=== PATIENT | female | born 1995 | race Caucasian/White ===

== ENCOUNTER 2019-03-14 23:41 | Emergency (ER) | payer SELFPAY ==
[2019-03-14] MEDS ORDERED: Ketorolac Tromethamine 60 MG/2 ML VIAL ONE (23:56)
== END 2019-03-15 00:24 | disposition home or self-care (01) ==
LOC: SCSER 23:41
DX: S29.012A Strain of muscle and tendon of back wall of thorax, initial encounter (principal); E66.9 Obesity, unspecified; F41.9 Anxiety disorder, unspecified; X58.XXXA Exposure to other specified factors, initial encounter
CPT/HCPCS: 96372; 99283; J1885

== ENCOUNTER 2023-01-30 14:25 | Observation (INO) | payer SELFPAY ==
[2023-01-30 14:55] LABS: #Basophils 0.1 thou/uL (0.0-0.2); #Monocytes 0.7 thou/uL (0.11-0.59); %Basophils 0.3 % (0.0-1.0); %Lymphocytes 10.2 % (21.0-51.0); %Monocytes 4.6 % (0.0-10.0); %Neutrophils 84.4 % (42.0-75.0); Hematocrit 38.8 % (36.0-47.0); Hemoglobin 13.1 g/dL (12.0-16.0); Mean Corpuscular HGB CONC 33.8 g/dL (32.0-36.0); Mean Corpuscular Hemoglobin 28.6 pg (27.0-31.0); Mean Corpuscular Volume 84.7 fl (78.0-98.0); Mean Platelet Volume 10.7 fL (7.4-10.4); Platelet Count 435 10x3/uL (130-400); RBC Distribution Width 13.2 % (11.5-14.5); Red Blood Cell (RBC) Count 4.58 mill/uL (4.20-5.40); White Blood Cell (WBC) Count 15.4 10x3/uL (4.8-10.8)
[2023-01-30 15:08] LABS: PTT 29.2 sec (22.9-36.1); Prothrombin Time 13.3 sec (12.0-14.7)
[2023-01-30] MEDS ORDERED: predniSONE 20 MG TAB ONE (15:09)
[2023-01-30] MEDS ORDERED: Morphine 4 MG/ML VIAL ONE (15:09)
[2023-01-30] MEDS ORDERED: Ondansetron PF 4 MG/2 ML Vial ONE (15:09)
[2023-01-30 15:10] LABS: BHCG - Serum Negative (NEGATIVE); Pregs Control Background? CLEAR/WHITE (CLR/WHITE); Pregs Control Bar Appear? YES (CONTROL BAR)
[2023-01-30 15:11] LABS: D-Dimer Test Less than 0.27 *mcg/mL (0.27-0.43)
[2023-01-30 15:19] LABS: ALT (SGPT) 16 U/L (8-55); AST (SGOT) 16 U/L (5-34); Albumin 4.5 g/dL (3.5-5.0); Alkaline Phosphatase 82 U/L (40-110); Anion Gap 15 mmol/L (10-20); BUN (Urea Nitrogen) 15 mg/dL (7.0-18.7); Bilirubin, Total 0.6 mg/dL (0.2-1.2); CK (CPK) 58 U/L (29-168); Calc. Creatinine Clearance 0 mL/min (70-130); Calcium 9.4 mg/dL (7.8-10.44); Carbon Dioxide 23 mmol/L (22-29); Chloride 105 mmol/L (98-107); Estimated GFR 102; Globulin 3.4 g/dL (2.4-3.5); Glucose 112 mg/dL (70-105); Potassium 4.1 mmol/L (3.5-5.1); Protein, Total 7.9 g/dL (6.0-8.3); Sodium 139 mmol/L (136-145)
[2023-01-30] MEDS ORDERED: LORazepam 2 MG/ML SYR.(CARPUJECT) ONE (15:37)
[2023-01-30] MEDS ORDERED: Senokot S 8.6-50 MG TAB PO PRN (16:45)
[2023-01-30] MEDS ORDERED: Acetaminophen 325 MG TAB PO PRN (16:45)
[2023-01-30] MEDS ORDERED: Ondansetron PF 4 MG/2 ML Vial IVP PRN (16:45)
[2023-01-30] MEDS ORDERED: Bisacodyl 5 MG TAB PO PRN (16:45)
[2023-01-30] MEDS ORDERED: HYDROcodone/Acetaminophen 7.5/325 mg Tablet PO PRN (16:45)
[2023-01-30] MEDS ORDERED: Morphine 4 MG/ML VIAL SLOW IVP PRN (16:49)
[2023-01-30] MEDS ORDERED: Sodium Chloride 0.9% 1,000 ML IV SCH (17:00)
[2023-01-30 17:50] LABS: Lactic Acid 1.2 mmol/L (0.5-2.2)
[2023-01-30 18:41] VITALS: BMI 44.9
[2023-01-30] MEDS: Ibuprofen 600 MG TAB PO SCH (19:11)
[2023-01-30] MEDS: Sodium Chloride 0.9% 1,000 ML IV SCH (19:12)
[2023-01-30] MEDS ORDERED: Cyclobenzaprine 10 MG TAB PO SCH (22:15)
[2023-01-31] MEDS: Ibuprofen 600 MG TAB PO SCH ×2 (00:21→06:20)
[2023-01-31] MEDS ORDERED: cloNIDine 0.1 MG TAB PO SCH (00:30)
[2023-01-31] MEDS: Sodium Chloride 0.9% 1,000 ML IV SCH (03:12)
[2023-01-31 05:46] LABS: Hemoglobin A1c 5.2 % (4.0-6.0)
[2023-01-31 06:05] LABS: #Monocytes 0.8 thou/uL (0.11-0.59); %Basophils 0.2 % (0.0-1.0); %Monocytes 4.7 % (0.0-10.0); %Neutrophils 85.8 % (42.0-75.0); Hematocrit 43.6 % (36.0-47.0); Hemoglobin 14.7 g/dL (12.0-16.0); Mean Corpuscular HGB CONC 33.7 g/dL (32.0-36.0); Mean Corpuscular Hemoglobin 28.7 pg (27.0-31.0); Mean Platelet Volume 10.9 fL (7.4-10.4); Platelet Count 377 10x3/uL (130-400); RBC Distribution Width 13.4 % (11.5-14.5); Red Blood Cell (RBC) Count 5.13 mill/uL (4.20-5.40); White Blood Cell (WBC) Count 16.3 10x3/uL (4.8-10.8)
[2023-01-31 06:24] LABS: INR-International Normal Ratio 1.1; Prothrombin Time 14.1 sec (12.0-14.7)
[2023-01-31 06:25] LABS: PTT 30.1 sec (22.9-36.1)
[2023-01-31 06:43] LABS: Albumin 4.5 g/dL (3.5-5.0)
[2023-01-31 06:44] LABS: Chloride 105 mmol/L (98-107); Potassium 4.2 mmol/L (3.5-5.1); Sodium 137 mmol/L (136-145)
[2023-01-31 06:45] LABS: Calcium 9.7 mg/dL (7.8-10.44); Glucose 119 mg/dL (70-105); Triglycerides 38 mg/dL (Less than 150)
[2023-01-31 06:46] LABS: Globulin 3.5 g/dL (2.4-3.5)
[2023-01-31 06:47] LABS: Anion Gap 16 mmol/L (10-20); Carbon Dioxide 20 mmol/L (22-29)
[2023-01-31 06:48] LABS: Alkaline Phosphatase 83 U/L (40-110)
[2023-01-31 06:49] LABS: Calc. Creatinine Clearance 190 mL/min (70-130); Estimated GFR 116
[2023-01-31 06:50] LABS: BUN (Urea Nitrogen) 11 mg/dL (7.0-18.7)
[2023-01-31 06:51] LABS: ALT (SGPT) 15 U/L (8-55); AST (SGOT) 18 U/L (5-34); Cardiac Risk 3.2 (Less than 4.5); Cholesterol 173 mg/dl (< 200 Desired); HDL Cholesterol 54 mg/dL (>60 Neg Risk); LDL Cholesterol, Calculated 111 mg/dL; Magnesium 1.9 mg/dL (1.6-2.6)
[2023-01-31 06:52] LABS: CK (CPK) 98 U/L (29-168)
[2023-01-31 07:43] LABS: Bilirubin, Total 1.1 mg/dL (0.2-1.2)
[2023-01-31 08:12] VITALS: BP 183/93; TEMP 97.8
== END 2023-01-31 08:17 | disposition home or self-care (01) ==
LOC: ERS 14:25 → SUATTDRO 14:25 → 2SW 16:49
PROVIDERS: ADMIT Family Medicine; ATTEND Family Medicine
DX: T63.311A Toxic effect of venom of black widow spider, accidental (unintentional), initial encounter (principal); R73.9 Hyperglycemia, unspecified; D72.829 Elevated white blood cell count, unspecified; Z79.899 Other long term (current) drug therapy
CPT/HCPCS: 36415; 80053; 80061; 82550; 83036; 83605; 83735; 84484; 84703; 85025; 85379; 85610; 85652; 85730; 86140; 93005; 93010; 96361; 96374; 96375; 96376; G0378; J2060; J2270; J2405; J7050; J7512

== ENCOUNTER 2023-02-14 20:41 | Emergency (ER) | payer SELFPAY | END 2023-02-14 21:53 | disposition home or self-care (01) | LOC: ERS 20:41 | DX: L03.113 Cellulitis of right upper limb (principal); W57.XXXA Bitten or stung by nonvenomous insect and other nonvenomous arthropods, initial encounter | CPT/HCPCS: 99283 ==

== ENCOUNTER 2023-12-23 22:12 | Emergency (ER) | payer SELFPAY | END 2023-12-24 03:10 | disposition home or self-care (01) | LOC: ERS 22:12 | DX: L02.31 Cutaneous abscess of buttock (principal); K61.0 Anal abscess | CPT/HCPCS: 36415; 72193; 80053; 84703; 85025; Q9967 ==

== ENCOUNTER 2024-01-17 07:24 | Emergency (ER) | payer SELFPAY ==
[2024-01-17] MEDS ORDERED: Ketorolac Tromethamine 30 MG (1 mL) VIAL ONE (07:46)
[2024-01-17] MEDS ORDERED: Acetaminophen 500 MG TAB ONE (07:46)
[2024-01-17 08:24] LABS: Influenza A by NAA Not Detected (NotDetected); Influenza B by NAA Not Detected (NotDetected); SARS-CoV-2 NAA Rapid Test Not Detected (NotDetected)
== END 2024-01-17 09:30 | disposition home or self-care (01) ==
LOC: ERS 07:24
DX: B34.9 Viral infection, unspecified (principal)
CPT/HCPCS: 71046; 96372; J1885

== ENCOUNTER 2024-04-15 19:41 | Emergency (ER) | payer SELFPAY ==
[2024-04-15 20:01] LABS: CAUTI Indications for Culture Dysuria,urgency,freq
[2024-04-15 20:02] LABS: Pregnancy Test - Urine (BHCG) Negative (Negative); Specific Gravity 1.023 (1.002-1.036)
[2024-04-15 20:03] LABS: Pregu Control Background? CLEAR/WHITE (CLR/WHITE); Pregu Control Bar Appear? YES (CONTROL BAR); Specific Gravity, Urine 1.023 (1.002-1.036)
[2024-04-15 20:04] LABS: Clarity Clear (Clear); Glucose, Urine (Dipstick) Unable to Interpret mg/dL (Negative); Ketone, Urine Unable to Interpret mg/dL (Negative); Leukocyte Unable to Interpret Leu/uL (Negative); Nitrite Unable to Interpret (Negative); Protein, Urine (Dipstick) Unable to Interpret mg/dL (Neg-Trace); pH, Urine 5.3 (5.0-9.0)
[2024-04-15 20:05] LABS: Bilirubin Unable to Interpret (Negative); Blood, Urine Unable to Interpret (Negative); RBC/HPF 0-3 HPF (0-3); Urobilinogen UNABLE TO INTERPRET mg/dL (Less than 2)
[2024-04-15 20:06] LABS: Bacteria/HPF None Seen HPF (None Seen); Urine Culture Reflex No No
== END 2024-04-15 20:31 | disposition home or self-care (01) ==
LOC: ERS 19:41
DX: R30.0 Dysuria (principal)
CPT/HCPCS: 81001; 81025; 99283

== ENCOUNTER 2025-03-04 08:30 | Emergency (ER) | payer SELFPAY | END 2025-03-04 09:35 | disposition home or self-care (01) | LOC: ERS 08:30 | DX: U07.1 COVID-19 (principal); E11.9 Type 2 diabetes mellitus without complications | CPT/HCPCS: 87081; 87428; 87430; 99283 ==